=== PATIENT | male | born 1995 | race African-American/Black ===

== ENCOUNTER 2017-06-24 05:55 | Day surgery (SDC) | payer OTHER ==
[2017-06-22 09:51] LABS: BASOPHILS # (AUTO) 0.3 K/uL (0.00-0.22); BASOPHILS % (AUTO) 3.7 % (0.0-2.0); EOSINOPHILS % (AUTO) 0.6 % (0.0-4.0); HEMOGLOBIN 14.1 g/dL (12.0-18.0); LYMPHOCYTES # (AUTO) 2.1 K/uL (2.0-11.5); LYMPHOCYTES % (AUTO) 26.7 % (20.5-51.1); MEAN CORPUSCULAR HEMOGLOBIN 28 pg (27-31); MEAN CORPUSCULAR HGB CONC 33 g/dL (33-37); MEAN CORPUSCULAR VOLUME 86 fL (80-94); MONOCYTES # (AUTO) 0.8 K/uL (0.8-1.0); MONOCYTES % (AUTO) 10.2 % (1.7-9.3); NEUTROPHILS # (AUTO) 4.8 K/uL (1.8-7.7); NEUTROPHILS % (AUTO) 58.8 % (42.2-75.2); PLATELET COUNT (AUTO) 322 K/uL (140-450); RED BLOOD CELL COUNT(AUTO) 4.98 MIL/uL (4.20-6.10); RED CELL DISTRIBUTION WIDTH 15.6 % (11.6-13.7)
[2017-06-22 09:58] LABS: APPEARANCE,URINE HAZY (CLEAR); BILIRUBIN,URINE NEGATIVE (NEGATIVE); BLOOD, URINE NEGATIVE (NEGATIVE); COLOR,URINE YELLOW (YELLOW); LEUKOCYTE ESTERASE ,URINE NEGATIVE (NEGATIVE); NITRITE, URINE NEGATIVE (NEGATIVE); UGLUCOSE NEGATIVE (NEGATIVE)
[2017-06-22 10:07] LABS: ALBUMIN 3.5 g/dL (3.4-5.0); ANION GAP 10.2 (8-16); CARBON DIOXIDE 30.2 mmol/L (21-32); CREATININE 1.1 mg/dL (0.7-1.3); POTASSIUM 3.4 mmol/L (3.5-5.1); TOTAL BILIRUBIN 0.4 mg/dL (0.0-1.0)
[~2017-06-24] VITALS: Ht 185.4 cm; Wt 114.3 kg
[~2017-06-24 05:55] MED LIST: VITB12 PO; VITD1000 PO; [UNRECOGNIZED DRUG - CODE] PO
[2017-06-24] MEDS ORDERED: PROPOFOL 200 MG/20 ML VIAL IV ONE (07:16)
[2017-06-24] MEDS ORDERED: LIDOCAINE 2% 100 MG/5 ML UJET TP ONE (07:35)
[2017-06-24] MEDS ORDERED: ONDANSETRON 4 MG/2 ML VIAL IVP PRN (07:55)
[2017-06-24] MEDS ORDERED: HYDROmorphone 1 MG/ML AMP IVP PRN (07:55)
[2017-06-24] MEDS ORDERED: EPINEPHrine PFS 0.1 MG/ML SYR IVP ONE (10:26)
[2017-06-24] MEDS ORDERED: COMMUNICATION ORDER MC ONE (10:35)
[2017-06-24] MEDS ORDERED: [UNRECOGNIZED DRUG - SUPPLY] IV SCH (10:41)
== END 2017-06-24 10:25 | disposition home or self-care (01) ==
LOC: MDS 05:55 → MMU 05:56 → MDS 10:25
PROVIDERS: ATTEND Internal Medicine Gastroenterology
DX: K51.40 Inflammatory polyps of colon without complications (principal); K59.09 Other constipation; Z88.8 Allergy status to other drugs, medicaments and biological substances; Z98.890 Other specified postprocedural states
CPT/HCPCS: 36415; 45346; 71010; 80053; 81003; 85025; 93005; J0171; J2704; J7120; Q0092

== ENCOUNTER 2018-02-12 06:32 | Day surgery (SDC) | payer OTHER ==
[2018-02-10 17:34] LABS: BASOPHILS % (AUTO) 0.7 % (0.0-2.0); EOSINOPHILS # (AUTO) 0.1 K/uL (0-0.4); EOSINOPHILS % (AUTO) 0.9 % (0.0-4.0); HEMATOCRIT 45.8 % (36-52); LYMPHOCYTES # (AUTO) 2.6 K/uL (2.0-11.5); LYMPHOCYTES % (AUTO) 35.5 % (20.5-51.1); MEAN CORPUSCULAR HEMOGLOBIN 29 pg (27-31); MEAN CORPUSCULAR HGB CONC 33 g/dL (33-37); MEAN CORPUSCULAR VOLUME 89.3 fL (80-94); MONOCYTES # (AUTO) 0.5 K/uL (0.8-1.0); MONOCYTES % (AUTO) 7.3 % (1.7-9.3); NEUTROPHILS # (AUTO) 4.1 K/uL (1.8-7.7); NEUTROPHILS % (AUTO) 55.6 % (42.2-75.2); PLATELET COUNT (AUTO) 279 K/uL (140-450); RED BLOOD CELL COUNT(AUTO) 5.13 MIL/uL (4.20-6.10); RED CELL DISTRIBUTION WIDTH 13.5 % (11.6-13.7); WHITE BLOOD COUNT (AUTO) 7.3 K/uL (4.8-10.8)
[2018-02-10 18:21] LABS: ALBUMIN 3.7 g/dL (3.4-5.0); ANION GAP 12.4 (8-16); CARBON DIOXIDE 30.5 mmol/L (21-32); CREATININE 1.1 mg/dL (0.7-1.3); POTASSIUM 3.9 mmol/L (3.5-5.1); TOTAL BILIRUBIN 0.4 mg/dL (0.0-1.0)
[~2018-02-12] VITALS: Ht 190.5 cm; Wt 113.4 kg
[2018-02-12] MEDS ORDERED: LIDOCAINE 2% 100 MG/5 ML UJET TP ONE (07:56)
[2018-02-12] MEDS ORDERED: LEVO0.124 PO (08:01)
[2018-02-12] MEDS ORDERED: PROPOFOL 200 MG/20 ML VIAL IV ONE (08:05)
[2018-02-12] MEDS ORDERED: fentaNYL 0.05 MG/ML VIAL ONE (08:06)
[2018-02-12] MEDS ORDERED: MIDAZOLAM 2 MG/2 ML VIAL ONE (08:06)
[2018-02-12] MEDS ORDERED: MEPERIDINE 25 MG/ML SYR IVP PRN (08:20)
[2018-02-12] MEDS ORDERED: diphenhydrAMINE 50 MG/ML VIAL IVP PRN (08:20)
[2018-02-12] MEDS ORDERED: ONDANSETRON 4 MG/2 ML VIAL IVP PRN (08:20)
[2018-02-12] MEDS ORDERED: LACTATED RINGERS 1,000 ML IV SCH (08:20)
== END 2018-02-12 10:12 | disposition home or self-care (01) ==
LOC: MMU 06:32 → MDS 06:32
PROVIDERS: ATTEND Internal Medicine Gastroenterology
DX: K62.1 Rectal polyp (principal); Z88.8 Allergy status to other drugs, medicaments and biological substances; Z98.890 Other specified postprocedural states
CPT/HCPCS: 36415; 45335; 45338; 71045; 80053; 85025; J2250; J2704; J3010; J7120

== ENCOUNTER 2018-12-18 06:50 | Day surgery (SDC) | payer OTHER ==
[~2018-12-18] VITALS: Ht 190.5 cm; Wt 113.4 kg
[~2018-12-18 06:50] MED LIST changes: +CYAN100T65 PO; +LEVO0.124 PO; -VITB12 PO
[2018-12-18 07:28] LABS: BASOPHILS % (AUTO) 0.6 % (0.0-2.0); EOSINOPHILS # (AUTO) 0.1 K/uL (0-0.4); EOSINOPHILS % (AUTO) 0.8 % (0.0-4.0); HEMATOCRIT 45.9 % (36-52); HEMOGLOBIN 15.9 g/dL (12.0-18.0); LYMPHOCYTES # (AUTO) 2.7 K/uL (2.0-11.5); LYMPHOCYTES % (AUTO) 31.1 % (20.5-51.1); MEAN CORPUSCULAR HEMOGLOBIN 31 pg (27-31); MEAN CORPUSCULAR HGB CONC 35 g/dL (33-37); MONOCYTES # (AUTO) 0.6 K/uL (0.8-1.0); MONOCYTES % (AUTO) 7.2 % (1.7-9.3); NEUTROPHILS # (AUTO) 5.3 K/uL (1.8-7.7); NEUTROPHILS % (AUTO) 60.3 % (42.2-75.2); PLATELET COUNT (AUTO) 289 K/uL (140-450); RED BLOOD CELL COUNT(AUTO) 5.16 MIL/uL (4.20-6.10); RED CELL DISTRIBUTION WIDTH 13.1 % (11.6-13.7); WHITE BLOOD COUNT (AUTO) 8.8 K/uL (4.8-10.8)
[2018-12-18 07:36] LABS: ANION GAP 10.7 (8-16); CREATININE 1.1 mg/dL (0.7-1.3); POTASSIUM 3.7 mmol/L (3.5-5.1)
[2018-12-18 07:40] LABS: PROTHROMBIN TIME 10.2 secs (10.8-13.4)
[2018-12-18 07:47] LABS: ALBUMIN 3.7 g/dL (3.4-5.0); TOTAL BILIRUBIN 0.8 mg/dL (0.0-1.0)
[2018-12-18] MEDS ORDERED: MIDAZOLAM 2 MG/2 ML VIAL ONE (09:23)
[2018-12-18] MEDS ORDERED: ONDANSETRON 4 MG/2 ML VIAL IVP PRN (09:25)
[2018-12-18] MEDS ORDERED: KETAMINE 500 MG/5 ML VIAL ONE (09:25)
[2018-12-18] MEDS ORDERED: HYDROmorphone 1 MG/ML AMP IVP PRN (09:25)
== END 2018-12-18 12:29 | disposition home or self-care (01) ==
LOC: MMU 06:50 → MDS 06:50
PROVIDERS: ATTEND Internal Medicine Gastroenterology
DX: K51.411 Inflammatory polyps of colon with rectal bleeding (principal); E66.9 Obesity, unspecified; F32.9 Major depressive disorder, single episode, unspecified; Z79.899 Other long term (current) drug therapy; Z68.31 Body mass index [BMI] 31.0-31.9, adult; Z88.8 Allergy status to other drugs, medicaments and biological substances
CPT/HCPCS: 36415; 45346; 71045; 80053; 85025; 85610; 85730; J2250; J7120; Q0092

== ENCOUNTER 2019-03-05 07:23 | Day surgery (SDC) | payer OTHER ==
[~2019-03-05] VITALS: Ht 190.5 cm; Wt 118.8 kg
[2019-03-05] MEDS ORDERED: MIDAZOLAM 2 MG/2 ML VIAL ONE (07:54)
[2019-03-05] MEDS ORDERED: fentaNYL 0.05 MG/ML VIAL ONE (07:54)
[2019-03-05 08:09] LABS: BASOPHILS # (AUTO) 0.1 K/uL (0.00-0.22); BASOPHILS % (AUTO) 0.7 % (0.0-2.0); EOSINOPHILS # (AUTO) 0.1 K/uL (0-0.4); EOSINOPHILS % (AUTO) 1.2 % (0.0-4.0); HEMATOCRIT 46.7 % (36-52); HEMOGLOBIN 15.7 g/dL (12.0-18.0); LYMPHOCYTES # (AUTO) 3.4 K/uL (2.0-11.5); LYMPHOCYTES % (AUTO) 36.8 % (20.5-51.1); MEAN CORPUSCULAR HEMOGLOBIN 30 pg (27-31); MEAN CORPUSCULAR HGB CONC 34 g/dL (33-37); MEAN CORPUSCULAR VOLUME 89.4 fL (80-94); MONOCYTES # (AUTO) 0.6 K/uL (0.8-1.0); NEUTROPHILS # (AUTO) 4.9 K/uL (1.8-7.7); NEUTROPHILS % (AUTO) 54.3 % (42.2-75.2); PLATELET COUNT (AUTO) 292 K/uL (140-450); RED BLOOD CELL COUNT(AUTO) 5.22 MIL/uL (4.20-6.10); RED CELL DISTRIBUTION WIDTH 13.6 % (11.6-13.7); WHITE BLOOD COUNT (AUTO) 9.1 K/uL (4.8-10.8)
[2019-03-05 08:14] LABS: CARBON DIOXIDE 26.8 mmol/L (21-32); CREATININE 1.1 mg/dL (0.7-1.3); POTASSIUM 3.8 mmol/L (3.5-5.1)
[2019-03-05] MEDS ORDERED: PROPOFOL 200 MG/20 ML VIAL IV ONE (08:40)
[2019-03-05] MEDS ORDERED: LACTATED RINGERS 1,000 ML IV SCH (08:53)
[2019-03-05] MEDS ORDERED: ONDANSETRON 4 MG/2 ML VIAL IVP PRN (08:55)
[2019-03-05] MEDS ORDERED: diphenhydrAMINE 50 MG/ML VIAL IVP PRN (08:55)
== END 2019-03-05 10:49 | disposition home or self-care (01) ==
LOC: MDS 07:23 → MMU 07:24 → MDS 10:49
PROVIDERS: ATTEND Internal Medicine Gastroenterology
DX: K62.1 Rectal polyp (principal); Z86.010 Personal history of colon polyps
CPT/HCPCS: 36415; 45346; 71045; 80048; 85025; J2250; J2704; J3010; Q0092